=== PATIENT | male | born 1950 | race African-American/Black ===

== ENCOUNTER 2017-03-05 10:39 | Emergency (ER) | payer MEDICARE, SELFPAY ==
[2017-03-05 10:47] VITALS: BMI 37.5
--- NOTE | 2017-03-05 10:59 | ED.RN ---
SEE CODE SHEET.
--- NOTE | 2017-03-05 11:01 | ED.RN ---
FAMILY AT BEDSIDE. THIS RN GAVE PT DRIVERS LICENSE TO .
--- NOTE | 2017-03-05 11:15 | ED.VISSUMM ---
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 Patient is completely unresponsive and unable to give any history. History was obtained both by the paramedics and his . Reportedly the patient had been in his normal state of health. Recently he did have a spinal injection and had stopped his Coumadin but it since been restarted. He has not been ill recently. No chest pain, shortness of breath, fever or other symptoms. Chance at around 9:00 this morning he has sonorous respirations. She left him in bed and checked on him again and he was unresponsive she could not get into a rales and she called the squad. On the paramedics arrival the patient was in full cardiopulmonary arrest. With no pulse. They placed an IO and began chest compressions. He had 3 rounds of epinephrine prior to making to the emergency department. The entire time he was pulseless without any cardiac rhythm other than asystole. Physical Examination: Lifeless male with no pulse or spontaneous respirations. Compressions by device ongoing. HEENT exam patient's pupils were fixed and dilated about 5 mm. They are completely unresponsive. Airway was patent. With no emesis. Trachea midline. Lungs were clear with bagging. He had no spontaneous heartbeats. He had no carotid or femoral radial pulses. Abdomen is soft and nontender. Nondistended. Extremities were cool without pulses. And flaccid. With no spontaneous movement or movement to any noxious or verbal stimuli. Neurologically he was completely unresponsive. Test Results: None Emergency Department Course and Treatment: CPR was continued. Patient was given another round of epinephrine with a peripheral IV. Squad previously placed an IO. He was intubated on the first attempt using a 7.5 ET tube to 25 at the lips with bilateral breath sounds and good air exchange and color change. Ultrasound was performed in the room and showed absolutely no cardiac activity or motion. Prior to arrival in the emergency department patient had a 20 minute downtime. At 1045 with absolutely no response to epinephrine or chest compressions given and he was in full cardiopulmonary arrest I decided to terminate any further CPR or medical interventions. Patient was pronounced at 1045 on Sunday, March 05, 2017. When his and daughter arrived a long discussion with them. And they were brought in the room to be with her left one. Treatment Plan: [] Disposition: Arrangements will be made with an area home or the [facility] as needed. Impression: Acute full cardiopulmonary arrest. Intubated by ER. CPR without response. Pronounced at 10:45 AM on Sunday, March 05, 2017. History of DVT and PE is on Coumadin This note was generated with [employer] dictation software. It may contain incorrect words, spelling, and punctuation that were not noted in review of the chart prior to signing ED Disposition - Plan for ED Patient: Chief Complaint: CPR
[2017-03-05 11:21] LABS: Bedside Glucose 30 mg/dL (70-110)
--- NOTE | 2017-03-05 12:10 | CASEMGMT ---
Responded to [employer] paged overhead. Arrived to ED shortly after pt and obtained report from nursing and transporting squad, who relayed that pt's had been present at the home, attempted CPR while awaiting EMS, and would be arriving to ED with her dgtr. This worker was present as efforts continued and Dr. Madera pronounced pt. Met with pt's Ann and dgtr upon arrival to [facility] and accompanied them to [facility] [address] Madera. This worker was present as Dr. Madera met with family and notified them of pt's . Family requested to see pt; escorted them to bedside. Emotional support provided. explained that they had only moved to [place] last month from the [facility]; family is not local. Pt's other dgtr is presently en route from [place] and is anticipated to arrive in approximately one hour. Provided water and coffee cart. Family denies any additional needs/concerns at this time. SW will continue to follow and offer services prn.
== END 2017-03-05 16:13 ==
PROVIDERS: Emergency Provider Emergency Medicine
DX: I46.9 Cardiac arrest, cause unspecified (principal); Z86.718 Personal history of other venous thrombosis and embolism; Z86.711 Personal history of pulmonary embolism; Z79.01 Long term (current) use of anticoagulants; M19.90 Unspecified osteoarthritis, unspecified site; Z96.649 Presence of unspecified artificial hip joint
CPT/HCPCS: 31500; 82962; 92950; 99285; J7030; A4216